=== PATIENT | male | born 2005 | race African-American/Black ===

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

== ENCOUNTER 2023-03-04 11:23 | Emergency (ER) | payer SELFPAY ==
[2023-03-04 12:07] VITALS: BP 104/62; PULSE 71; RESP 18; TEMP 98.3; BMI 25.2
[2023-03-04] MEDS ORDERED: KETOROLAC TROMETHAMINE 30 MG/1 ML VIAL IM ONE (13:22)
[2023-03-04] MEDS ORDERED: KETOROLAC TROMETHAMINE 30 MG/1 ML VIAL ONE ×2 (13:59→14:06)
[2023-03-04 14:12] LABS: BASO % 0.3 % (0-2.0); EOS % 1.2 % (0-4.5); HEMATOCRIT 48.4 % (35.4-49); HEMOGLOBIN 15.8 GM/dL (11.7-16.9); LYMPH % 28.1 % (8-40); MCH 28.8 pg (25.7-33.7); MCHC 32.6 g/dl (32.0-35.9); MEAN CELL VOLUME 88.3 fl (80-96); MEAN PLT VOLUME 9.7 fl (7.5-11.1); MONO % 3.5 % (3.8-10.2); NEUT % 66.9 % (42.8-82.8); PLATELET COUNT 151 10^3/uL (134-434); RBC 5.48 M/mm3 (4.00-5.60); RDW 13.7 % (11.9-15.9)
[2023-03-04 14:25] LABS: POTASSIUM 4.4 mmol/L (3.5-5.1)
[2023-03-04 14:27] LABS: ALBUMIN 4.1 g/dl (3.4-5.0); BLOOD UREA NITROGEN 13.2 mg/dL (7-18); CALCIUM 9.1 mg/dL (8.5-10.1)
[2023-03-04 14:30] LABS: CREATININE 1.1 mg/dL (0.55-1.3)
[2023-03-04 14:32] LABS: BILIRUBIN,TOTAL 0.5 mg/dL (0.2-1); TOT PROT 7.4 g/dl (6.4-8.2)
== END 2023-03-04 15:47 | disposition home or self-care (01) ==
LOC: JER 11:23
PROC: 3E0233Z Introduction of Anti-inflammatory into Muscle, Percutaneous Approach (ICD-10-PCS; principal; 2023-03-04)
DX: R20.2 Paresthesia of skin (principal); M79.642 Pain in left hand; R22.32 Localized swelling, mass and lump, left upper limb
CPT/HCPCS: 36415; 71046-TC-FY; 73110-TC-LT-FY; 73130-TC-LT-FY; 80053; 83735; 84484; 85025; 93005; 93010; 99285-25

== ENCOUNTER 2023-03-06 17:14 | Inpatient (IN) | payer OTHER ==
[2023-03-06 19:59] LABS: BASO % 0.4 % (0-2.0); EOS % 1.7 % (0-4.5); HEMATOCRIT 49.5 % (35.4-49); HEMOGLOBIN 16.4 GM/dL (11.7-16.9); MCH 29.2 pg (25.7-33.7); MCHC 33.1 g/dl (32.0-35.9); MEAN CELL VOLUME 88.2 fl (80-96); MEAN PLT VOLUME 9.2 fl (7.5-11.1); MONO % 3.3 % (3.8-10.2); NEUT % 60.6 % (42.8-82.8); PLATELET COUNT 170 10^3/uL (134-434); RBC 5.61 M/mm3 (4.00-5.60); RDW 13.8 % (11.9-15.9); WHITE BLOOD COUNT 5.8 K/mm3 (4.0-10.0)
[2023-03-06 20:17] LABS: POTASSIUM 4.4 mmol/L (3.5-5.1)
[2023-03-06 20:19] LABS: ALBUMIN 4.2 g/dl (3.4-5.0); BLOOD UREA NITROGEN 14.9 mg/dL (7-18); CALCIUM 9.6 mg/dL (8.5-10.1); MAGNESIUM 2.2 mg/dL (1.8-2.4)
[2023-03-06 20:22] LABS: CREATININE 1.1 mg/dL (0.55-1.3)
[2023-03-06 20:24] LABS: BILIRUBIN,TOTAL 0.4 mg/dL (0.2-1); TOT PROT 7.7 g/dl (6.4-8.2)
[2023-03-07 08:34] LABS: BASO % 0.4 % (0-2.0); EOS % 2.2 % (0-4.5); HEMATOCRIT 45.4 % (35.4-49); HEMOGLOBIN 15.2 GM/dL (11.7-16.9); LYMPH % 38.6 % (8-40); MCH 29.6 pg (25.7-33.7); MCHC 33.5 g/dl (32.0-35.9); MEAN CELL VOLUME 88.4 fl (80-96); MONO % 5.5 % (3.8-10.2); NEUT % 53.3 % (42.8-82.8); PLATELET COUNT 154 10^3/uL (134-434); RBC 5.14 M/mm3 (4.00-5.60); RDW 13.2 % (11.9-15.9); WHITE BLOOD COUNT 4.5 K/mm3 (4.0-10.0)
[2023-03-07 08:46] LABS: POTASSIUM 3.6 mmol/L (3.5-5.1)
[2023-03-07 08:48] LABS: CALCIUM 8.7 mg/dL (8.5-10.1)
[2023-03-07 08:49] LABS: ALBUMIN 3.6 g/dl (3.4-5.0); BLOOD UREA NITROGEN 14.4 mg/dL (7-18)
[2023-03-07 08:52] LABS: CREATININE 1.1 mg/dL (0.55-1.3)
[2023-03-07 08:54] LABS: BILIRUBIN,TOTAL 0.4 mg/dL (0.2-1); TOT PROT 6.7 g/dl (6.4-8.2)
[2023-03-07 18:16] VITALS: BMI 24.8
[2023-03-07] MEDS: ACETAMINOPHEN 325 MG TABLET (FP) PO PRN (19:18)
[2023-03-08] MEDS: PRAMIPEXOLE DIHYDROCHLORIDE 0.25 MG TABLET PO SCH (21:38)
[2023-03-09 09:15] LABS: TOTAL IRON BINDING CAPACITY 328 ug/dL (250-450)
[2023-03-09 09:16] LABS: IRON SERUM 96 ug/dL (50-175)
[2023-03-09] MEDS: PRAMIPEXOLE DIHYDROCHLORIDE 0.25 MG TABLET PO SCH (10:32)
[2023-03-09] MEDS ORDERED: methylPREDNISolone NA SUCC 1000 MG/8 ML VIAL IVPB SCH (13:30)
[2023-03-09] MEDS: SODIUM CHLORIDE IVPB SCH (15:41)
[2023-03-09] MEDS: METHYLPREDNISOLONE NA SUCC IVPB SCH (15:41)
[2023-03-09] MEDS: POLYETHYLENE GLYCOL (HEALTHYLAX) 3350 17 GM PACKET PO SCH (17:55)
[2023-03-10] MEDS: SODIUM CHLORIDE IVPB SCH ×2 (03:21→15:30)
[2023-03-10] MEDS: PRAMIPEXOLE DIHYDROCHLORIDE 0.25 MG TABLET PO SCH ×3 (03:21→22:31)
[2023-03-10] MEDS: METHYLPREDNISOLONE NA SUCC IVPB SCH ×2 (03:21→15:30)
[2023-03-10] MEDS: ACETAMINOPHEN 325 MG TABLET (FP) PO PRN ×2 (03:34→13:43)
[2023-03-10 08:22] LABS: INR 1.22 (0.83-1.09); PROTHROMBIN TIME (PATIENT) 14.1 SEC (9.7-13.0)
[2023-03-10] MEDS: POLYETHYLENE GLYCOL (HEALTHYLAX) 3350 17 GM PACKET PO SCH (09:19)
[2023-03-10 15:07] LABS: CSF APPEARANCE CLEAR (CLEAR); CSF COLOR COLORLESS (COLORLESS)
[2023-03-10 15:08] LABS: CSF WBC 1 mm3 (0-5)
[2023-03-11] MEDS: METHYLPREDNISOLONE NA SUCC IVPB SCH ×2 (03:48→14:43)
[2023-03-11] MEDS: SODIUM CHLORIDE IVPB SCH ×2 (03:48→14:43)
[2023-03-11] MEDS ORDERED: MAGNESIUM HYDROX 2400MG/30ML ORAL SUSPENSION 30 ML CUP PO ONE (06:15)
[2023-03-11] MEDS: POLYETHYLENE GLYCOL (HEALTHYLAX) 3350 17 GM PACKET PO SCH (09:55)
[2023-03-11] MEDS: PRAMIPEXOLE DIHYDROCHLORIDE 0.25 MG TABLET PO SCH ×2 (09:55→21:37)
[2023-03-11 23:54] VITALS: RESP 18
[2023-03-12] MEDS: ACETAMINOPHEN 325 MG TABLET (FP) PO PRN ×2 (00:51→13:16)
[2023-03-12] MEDS: SODIUM CHLORIDE IVPB SCH ×2 (02:49→14:21)
[2023-03-12] MEDS: METHYLPREDNISOLONE NA SUCC IVPB SCH ×2 (02:49→14:21)
[2023-03-12] MEDS: PRAMIPEXOLE DIHYDROCHLORIDE 0.25 MG TABLET PO SCH (09:49)
[2023-03-12] MEDS: POLYETHYLENE GLYCOL (HEALTHYLAX) 3350 17 GM PACKET PO SCH (09:49)
[2023-03-12 14:46] VITALS: BP 127/72; PULSE 68; TEMP 98.5
[2023-03-15 03:07] LABS: CMV IgG CSF < 0.20 U/mL (<=0.70)
[2023-03-15 13:09] LABS: IG G QN IMMUNOGLOBULIN 1281 mg/dL (671-1456); IGG SUBCLASS 1 579 mg/dL (325-846); IGG SUBCLASS 2 484 mg/dL (133-509); IGG SUBCLASS 3 52 mg/dL (19-109)
[2023-03-22 17:07] LABS: ALPHA-1-GLOBULIN,CSF 4.7 % (2.2-6.2); ALPHA-2-GLOBULIN,CSF 3.6 % (2.7-8.2); BETA GLOBULIN,CSF 13.7 % (11.8-21.7); GAMMA GLOBULIN,CSF 9.4 % (2.4-7.8); M-SPIKE CSF Not Observed % (Not Observed)
== END 2023-03-12 17:16 | disposition home or self-care (01) | DRG 40 ==
LOC: JER 17:14 → JERBED 03-07 00:08 → OBSVTOIN 03-07 03:23 → J8W 03-07 17:39
PROVIDERS: ADMIT Internal Medicine; ATTEND Internal Medicine
PROC: 009U3ZZ Drainage of Spinal Canal, Percutaneous Approach (ICD-10-PCS; principal; 2023-03-10)
PROC: B01BZZZ Fluoroscopy of Spinal Cord (ICD-10-PCS; 2023-03-10)
DX: G37.3 Acute transverse myelitis in demyelinating disease of central nervous system (principal); R20.0 Anesthesia of skin; R55 Syncope and collapse; G43.909 Migraine, unspecified, not intractable, without status migrainosus; G25.81 Restless legs syndrome
CPT/HCPCS: 0241U-QW; 36415; 62272; 70450-TC; 70551-TC; 72125-TC; 72141-TC; 80053; 82607; 82784; 82787; 82962; 83520; 83540; 83550; 83735; 83873; 83883; 83916; 84157; 84166; 84425; 84439; 84443; 85025; 85610; 86038; 86644; 87070; 87205; 97116-GP; 97161-GP; 99285-25; G0378

== ENCOUNTER 2023-03-25 09:25 | Emergency (ER) | payer OTHER ==
[2023-03-25 09:41] VITALS: BP 120/67; PULSE 90; RESP 18; TEMP 98.8; BMI 24.8
[2023-03-25 11:10] LABS: BASO % 0.3 % (0-2.0); EOS % 0.9 % (0-4.5); HEMOGLOBIN 15.1 GM/dL (11.7-16.9); MCH 29.9 pg (25.7-33.7); MCHC 33.6 g/dl (32.0-35.9); MEAN CELL VOLUME 89.2 fl (80-96); MONO % 4.5 % (3.8-10.2); NEUT % 76.3 % (42.8-82.8); PLATELET COUNT 170 10^3/uL (134-434); RBC 5.04 M/mm3 (4.00-5.60); RDW 14.7 % (11.9-15.9); WHITE BLOOD COUNT 8.9 K/mm3 (4.0-10.0)
[2023-03-25] MEDS ORDERED: SODIUM CHLORIDE 0.9% 500 ML INFUS.BAG IV ONE (11:12)
[2023-03-25] MEDS ORDERED: METOCLOPRAMIDE HCL INJECTION 10 MG/2 ML VIAL IVPB ONE (11:12)
[2023-03-25] MEDS ORDERED: METOCLOPRAMIDE HCL INJECTION 10 MG/2 ML VIAL ONE ×2 (11:21→11:28)
[2023-03-25 11:40] LABS: CHLORIDE 104 mmol/L (98-107); SODIUM 136 mmol/L (136-145)
[2023-03-25 11:42] LABS: CALCIUM 8.4 mg/dL (8.5-10.1)
[2023-03-25 11:43] LABS: ALBUMIN 3.1 g/dl (3.4-5.0); BLOOD UREA NITROGEN 22.2 mg/dL (7-18); CO2 26 mmol/L (21-32)
[2023-03-25 11:45] LABS: SGPT/ALT 36 U/L (13-61)
[2023-03-25 11:46] LABS: CREATININE 0.9 mg/dL (0.55-1.3); SGOT/AST 40 U/L (15-37)
[2023-03-25 11:47] LABS: TOT PROT 6.7 g/dl (6.4-8.2)
[2023-03-25 11:48] LABS: ALK PHOS 29 U/L (45-117); BILIRUBIN,TOTAL 0.4 mg/dL (0.2-1)
[2023-03-25 12:00] LABS: ANION GAP 6 mmol/L (4-13); POTASSIUM 6.2 mmol/L (3.5-5.1)
[2023-03-25 12:01] LABS: INR 1.09 (0.83-1.09); PROTHROMBIN TIME (PATIENT) 12.6 SEC (9.7-13.0)
[2023-03-25 12:04] LABS: ACTIVATED PTT 24.8 SECONDS (25.2-36.5)
[2023-03-25 13:22] LABS: POTASSIUM 4.8 mmol/L (3.5-5.1)
[2023-03-25 13:24] LABS: CALCIUM 8.6 mg/dL (8.5-10.1)
[2023-03-25 13:25] LABS: ALBUMIN 3.4 g/dl (3.4-5.0); BLOOD UREA NITROGEN 19.2 mg/dL (7-18)
[2023-03-25 13:30] LABS: BILIRUBIN,TOTAL 0.5 mg/dL (0.2-1); TOT PROT 6.9 g/dl (6.4-8.2)
== END 2023-03-25 15:00 | disposition home or self-care (01) ==
LOC: JER 09:25
PROC: 3E033GC Introduction of Other Therapeutic Substance into Peripheral Vein, Percutaneous Approach (ICD-10-PCS; principal; 2023-03-25)
DX: R51.9 Headache, unspecified (principal); M54.2 Cervicalgia; Z20.822 Contact with and (suspected) exposure to COVID-19
CPT/HCPCS: 0241U-QW; 36415; 70450-TC; 80053; 85025; 85610; 85730; 99284-25

== ENCOUNTER 2023-03-28 21:05 | Inpatient (IN) | payer OTHER ==
[2023-03-28] MEDS ORDERED: LACTATED RINGERS SOLUTION 1000 ML INFUS.BAG IV ONE (22:06)
[2023-03-28] MEDS ORDERED: METOCLOPRAMIDE HCL INJECTION 10 MG/2 ML VIAL IVPUSH ONE (22:11)
[2023-03-28] MEDS ORDERED: METOCLOPRAMIDE HCL INJECTION 10 MG/2 ML VIAL ONE (22:20)
[2023-03-28 22:37] LABS: BASO % 0.4 % (0-2.0); EOS % 0.2 % (0-4.5); HEMATOCRIT 50.6 % (35.4-49); HEMOGLOBIN 16.8 GM/dL (11.7-16.9); LYMPH % 6.9 % (8-40); MCH 29.3 pg (25.7-33.7); MCHC 33.2 g/dl (32.0-35.9); MEAN CELL VOLUME 88.1 fl (80-96); MEAN PLT VOLUME 7.5 fl (7.5-11.1); MONO % 2.7 % (3.8-10.2); NEUT % 89.8 % (42.8-82.8); PLATELET COUNT 154 10^3/uL (134-434); RBC 5.75 M/mm3 (4.00-5.60); RDW 14.2 % (11.9-15.9); WHITE BLOOD COUNT 8.6 K/mm3 (4.0-10.0)
[2023-03-28] MEDS ORDERED: ACETAMINOPHEN 1000 MG/100 ML BAG IVPB ONE (22:44)
[2023-03-28] MEDS ORDERED: ACETAMINOPHEN INJECTION 100 ML IVPB ONE (22:49)
[2023-03-28 23:30] LABS: POTASSIUM 4.5 mmol/L (3.5-5.1)
[2023-03-28 23:32] LABS: ALBUMIN 3.8 g/dl (3.4-5.0); BLOOD UREA NITROGEN 22.6 mg/dL (7-18); CALCIUM 9.8 mg/dL (8.5-10.1)
[2023-03-28 23:37] LABS: BILIRUBIN,TOTAL 0.8 mg/dL (0.2-1); TOT PROT 7.4 g/dl (6.4-8.2)
[2023-03-29] MEDS ORDERED: ONDANSETRON 4 MG/2 ML VIAL IVPUSH PRN (02:10)
[2023-03-29] MEDS ORDERED: ONDANSETRON 4 MG/2 ML VIAL ONE (03:10)
[2023-03-29] MEDS ORDERED: ACETAMINOPHEN INJECTION 100 ML IVPB ONE (03:10)
[2023-03-29] MEDS: ACETAMINOPHEN 1000 MG/100 ML BAG IVPB PRN ×4 (03:15→23:21)
[2023-03-29] MEDS: DEXTROSE 5%-0.45% SALINE 1,000 ML IV SCH ×2 (06:11→20:22)
[2023-03-29] MEDS: ENOXAPARIN NA (PORCINE) 40 MG/0.4 ML DISP.SYRIN SQ SCH (10:10)
[2023-03-29] MEDS: PRAMIPEXOLE DIHYDROCHLORIDE 0.25 MG TABLET PO SCH ×2 (10:11→21:28)
[2023-03-29 10:55] LABS: BASO % 0.4 % (0-2.0); EOS % 0.5 % (0-4.5); HEMATOCRIT 47.8 % (35.4-49); HEMOGLOBIN 16.1 GM/dL (11.7-16.9); LYMPH % 12.9 % (8-40); MCH 29.5 pg (25.7-33.7); MCHC 33.6 g/dl (32.0-35.9); MEAN CELL VOLUME 87.9 fl (80-96); MEAN PLT VOLUME 8.1 fl (7.5-11.1); MONO % 4.3 % (3.8-10.2); NEUT % 81.9 % (42.8-82.8); PLATELET COUNT 152 10^3/uL (134-434); RBC 5.44 M/mm3 (4.00-5.60); RDW 14.3 % (11.9-15.9); WHITE BLOOD COUNT 8.1 K/mm3 (4.0-10.0)
[2023-03-29 11:28] LABS: POTASSIUM 4.1 mmol/L (3.5-5.1)
[2023-03-29 11:37] LABS: BLOOD UREA NITROGEN 22.5 mg/dL (7-18); CALCIUM 9.3 mg/dL (8.5-10.1)
[2023-03-29 11:38] LABS: ALBUMIN 3.5 g/dl (3.4-5.0)
[2023-03-29 11:41] LABS: BILIRUBIN,TOTAL 0.9 mg/dL (0.2-1); TOT PROT 6.8 g/dl (6.4-8.2)
[2023-03-29] MEDS ORDERED: clonazePAM 0.5 MG TABLET PO PRN (22:55)
[2023-03-29] MEDS ORDERED: VALPROATE SODIUM 500 MG/5 ML VIAL IVPB ONE (22:58)
[2023-03-30] MEDS ORDERED: VALPROATE SODIUM INJECTION 500 MG in SODIUM CHLORIDE 100 ML IVPB ONE (01:00)
[2023-03-30] MEDS: DEXTROSE 5%-0.45% SALINE 1,000 ML IV SCH ×2 (10:24→23:51)
[2023-03-30] MEDS: ENOXAPARIN NA (PORCINE) 40 MG/0.4 ML DISP.SYRIN SQ SCH (10:24)
[2023-03-30] MEDS: DIVALPROEX NA *ER* EXTEND REL 500 MG TABLET.SA (FP) PO SCH ×2 (10:24→22:17)
[2023-03-30] MEDS ORDERED: oxyCODONE HCL 5 MG TABLET PO PRN (12:51)
[2023-03-30] MEDS: clonazePAM 0.5 MG TABLET PO SCH ×2 (15:05→22:19)
[2023-03-30] MEDS: ACETAMINOPHEN 325 MG TABLET (FP) PO PRN (22:18)
[2023-03-31 05:19] VITALS: RESP 18
[2023-03-31] MEDS: clonazePAM 0.5 MG TABLET PO SCH ×3 (05:50→22:10)
[2023-03-31] MEDS: DEXTROSE 5%-0.45% SALINE 1,000 ML IV SCH ×2 (05:51→13:30)
[2023-03-31] MEDS: DIVALPROEX NA *ER* EXTEND REL 500 MG TABLET.SA (FP) PO SCH ×2 (10:59→22:10)
[2023-03-31] MEDS: ENOXAPARIN NA (PORCINE) 40 MG/0.4 ML DISP.SYRIN SQ SCH (10:59)
[2023-03-31] MEDS: ACETAMINOPHEN 325 MG TABLET (FP) PO PRN (12:55)
[2023-03-31 22:46] VITALS: BMI 24.8
[2023-04-01] MEDS: ACETAMINOPHEN 325 MG TABLET (FP) PO PRN (05:26)
[2023-04-01] MEDS: clonazePAM 0.5 MG TABLET PO SCH ×2 (05:28→14:39)
[2023-04-01] MEDS: DIVALPROEX NA *ER* EXTEND REL 500 MG TABLET.SA (FP) PO SCH (10:40)
[2023-04-01] MEDS: ENOXAPARIN NA (PORCINE) 40 MG/0.4 ML DISP.SYRIN SQ SCH (10:40)
[2023-04-01 14:04] VITALS: BP 120/47; PULSE 72; TEMP 98.4
[2023-04-04 00:06] LABS: HCV ALPHA 2 MACRO CHART 272 mg/dL (110-276); NECRO.INFLAM ACT.SCORE 0.04 (0.00-0.17); NECROINFLAM. ACTIVITY GRADE A0-No activity (.)
== END 2023-04-01 17:00 | disposition home or self-care (01) | DRG 54 ==
LOC: JER 21:05 → JERBED 03-29 00:18 → OBSVTOIN 03-29 02:08 → J6S 03-29 05:22
PROVIDERS: ADMIT Internal Medicine; ATTEND Internal Medicine
DX: G43.901 Migraine, unspecified, not intractable, with status migrainosus (principal); G35 Multiple sclerosis; F19.939 Other psychoactive substance use, unspecified with withdrawal, unspecified; J45.909 Unspecified asthma, uncomplicated; F41.8 Other specified anxiety disorders
CPT/HCPCS: 36415; 80053; 82172; 82977; 83010; 83735; 83883; 84460; 85025; 86705; 86708; 87517; 87798; 99285-25; G0378